=== PATIENT | female | born 1985 | race Caucasian/White ===

== ENCOUNTER 2016-06-16 16:56 | Emergency (ER) | payer OTHER ==
[~2016-06-16] VITALS: Ht 177.8 cm; Wt 65.8 kg
--- NOTE | 2016-06-16 17:02 | NUR ---
DR BAXTER AT BEDSIDE FOR EVAL.
[2016-06-16] MEDS ORDERED: HYDROCODONE/APAP 5/325MG 1 EACH TABLET ONE (17:08)
[2016-06-16] MEDS ORDERED: MORPHINE SULFATE INJ 4 MG/ML DISP.SYRIN ONE (17:15)
[2016-06-16] MEDS ORDERED: ONDANSETRON 4 MG TAB.RAPDIS ONE (17:15)
--- NOTE | 2016-06-16 17:27 | NUR ---
RADIOLOGY AT BEDSIDE FOR LT HUMERUS AND CHEST XRAY.
[2016-06-16] MEDS ORDERED: MORPHINE SULFATE INJ 2 MG/ML DISP.SYRIN IM ONE (17:30)
[2016-06-16] MEDS ORDERED: HYDROCODONE/APAP 5/325MG 1 EACH TABLET PO ONE (17:30)
[2016-06-16] MEDS ORDERED: ONDANSETRON 4 MG TAB.RAPDIS SL ONE (17:30)
--- NOTE | 2016-06-16 17:52 | NUR ---
PT TO RADIOLOGY FOR HEAD AND C SPINE CT SCAN VIA [facility].
--- NOTE | 2016-06-16 19:17 | NUR ---
C COLLAR D/C'D. PT D/C IN STABLE CONDITION.
[2016-06-16 19:19] VITALS: BP 132/84
== END 2016-06-16 19:20 | disposition home or self-care (01) ==
LOC: ER 17:03
DX: M54.2 Cervicalgia (principal); R51 Headache; M25.512 Pain in left shoulder; R11.2 Nausea with vomiting, unspecified; V43.52XA Car driver injured in collision with other type car in traffic accident, initial encounter; Y92.89 Other specified places as the place of occurrence of the external cause; Y92.413 State road as the place of occurrence of the external cause; Y99.8 Other external cause status
CPT/HCPCS: 70450-TC; 71010-TC; 72125-TC; 73060-TC; A4606; J2270; Q0162; Z7610